=== PATIENT | female | born 1960 | race Caucasian/White ===

== ENCOUNTER 2022-01-31 13:48 | Emergency (ER) | payer OTHER ==
[~2022-01-31] VITALS: Ht 154.9 cm; Wt 59.0 kg
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
[2022-01-31] MEDS ORDERED: METOPROLOL SUCCINATE 50 MG TAB.SR.24H PO SCH (14:30)
[2022-01-31] MEDS ORDERED: CALCIUM CARBONATE 500 MG TAB.CHEW PO ONE (14:30)
[2022-01-31] MEDS ORDERED: CALCIUM CARBONATE 500 MG TAB.CHEW ONE (14:55)
--- NOTE | 2022-01-31 15:29 | NUR ---
METOPROLOL AND TUMS GIVEN TO PATIENT.
[2022-01-31 16:52] VITALS: BP 157/80
--- NOTE | 2022-01-31 16:56 | NUR ---
Patient discharged to home in stable condition. Written and verbal after care instructions given. Patient verbalizes understanding of instruction. Patient ambulatory w/ steady gait.
== END 2022-01-31 17:18 | disposition home or self-care (01) ==
LOC: ER 13:50
DX: H93.8X1 Other specified disorders of right ear (principal); R03.0 Elevated blood-pressure reading, without diagnosis of hypertension; I10 Essential (primary) hypertension; E11.9 Type 2 diabetes mellitus without complications